=== PATIENT | female | born 1950 | race Caucasian/White ===

== ENCOUNTER 2017-03-08 09:02 | Emergency (ER) | payer OTHER, BC ==
[~2017-03-08] VITALS: Ht 172.7 cm; Wt 78.9 kg
[2017-03-08] MEDS ORDERED: ZOLOFT100 MG PO (09:22)
[2017-03-08] MEDS ORDERED: LISINOPRIL10 MG PO (09:46)
[2017-03-08] MEDS ORDERED: ASPIR 8181 MG PO (09:46)
[2017-03-08] MEDS ORDERED: CYCLOBENZAPRINE10 MG PO (10:45)
[2017-03-08] MEDS ORDERED: NORCO 5-325 TA1 EACH PO (10:51)
[2017-03-08 11:19] VITALS: BP 105/61
== END 2017-03-08 10:46 | disposition home or self-care (01) ==
LOC: ER 09:02
DX: S22.42XA Multiple fractures of ribs, left side, initial encounter for closed fracture (principal); F17.210 Nicotine dependence, cigarettes, uncomplicated; F10.99 Alcohol use, unspecified with unspecified alcohol-induced disorder; W18.11XA Fall from or off toilet without subsequent striking against object, initial encounter; Y93.89 Activity, other specified; Y92.89 Other specified places as the place of occurrence of the external cause; Y99.8 Other external cause status